=== PATIENT | male | born 2000 ===

== ENCOUNTER 2021-06-23 16:08 | Emergency (ER) | payer BC ==
[2021-06-23] MEDS ORDERED: Sodium Chloride 0.9% 10 ML Syringe FLUSH PRN (16:15)
[2021-06-23] MEDS ORDERED: Sodium Chloride 0.9% 1,000 ML IV ONE (16:30)
[2021-06-23] MEDS ORDERED: HYDROmorphone 2 MG/ML SDV ONE ×3 (17:29→20:37)
[2021-06-23] MEDS: HYDROmorphone 2 MG/ML SDV IVPUSH PRN ×3 (18:30→20:39)
[2021-06-23] MEDS ORDERED: HYDROmorphone 2 MG Tab ONE ×3 (20:38→21:08)
[2021-06-23] MEDS ORDERED: Ibuprofen 600 MG Tab PO ONE (21:00)
[2021-06-23] MEDS ORDERED: Ibuprofen 600 MG Tab ONE (21:04)
== END 2021-06-23 21:25 | disposition home or self-care (01) ==
LOC: LB.ED 16:08
DX: T20.14XA Burn of first degree of nose (septum), initial encounter (principal); T22.10XA Burn of first degree of shoulder and upper limb, except wrist and hand, unspecified site, initial encounter; T31.11 Burns involving 10-19% of body surface with 10-19% third degree burns; Z88.0 Allergy status to penicillin; X14.1XXA Other contact with hot air and other hot gases, initial encounter
CPT/HCPCS: 96374; 96376; 99284; A9270; J1170; J7030